=== PATIENT | male | born 1940 | race Two or more races ===

== ENCOUNTER → 2019-02-26 | Outpatient (CLI) | payer OTHER | END | disposition home or self-care (01) | LOC: TOM 07:15 | DX: K56.50 Intestinal adhesions [bands], unspecified as to partial versus complete obstruction (principal); R19.5 Other fecal abnormalities; D64.89 Other specified anemias ==

== ENCOUNTER 2022-04-28 12:20 | Inpatient (IN) | payer OTHER ==
[~2022-04-28] VITALS: Ht 167.6 cm; Wt 99.8 kg
[2022-04-28] MEDS ORDERED: FAMOTIDINE40 MG PO (12:28)
[2022-04-28] MEDS ORDERED: LOKELMA10 GM PO (12:28)
[2022-04-28] MEDS ORDERED: DILTIAZEM ER180 M2 PO (12:28)
[2022-04-28] MEDS ORDERED: GLIMEPIRIDE2 M1 PO (12:28)
[2022-04-28] MEDS ORDERED: MAXIMUM D3325 MCG PO (12:28)
[2022-04-28] MEDS ORDERED: PANTOPRAZOLE SO40 MG PO (12:28)
[2022-04-28] MEDS ORDERED: CALCITRIOL0.25 MCG PO (12:28)
[2022-04-28] MEDS ORDERED: ST. JOSEPH ASPI81 M2 PO (12:29)
[2022-04-28] MEDS ORDERED: LOSARTAN POTASS25 MG PO (12:29)
[2022-04-28] MEDS ORDERED: GABAPENTIN100 M2 PO (12:29)
[2022-04-28] MEDS ORDERED: HYDRALAZINE HCL25 MG PO (12:29)
== END 2022-05-01 14:19 | disposition home or self-care (01) | DRG 682 ==
LOC: ER 12:20 → ICU-2 15:38 → ICU 15:38 → MEDJ 04-30 18:36
PROVIDERS: ADMIT Internal Medicine; ATTEND Internal Medicine
PROC: 30233N1 Transfusion of Nonautologous Red Blood Cells into Peripheral Vein, Percutaneous Approach (ICD-10-PCS; principal; 2022-04-28)
PROC: 4A12X4Z Monitoring of Cardiac Electrical Activity, External Approach (ICD-10-PCS; 2022-04-28)
PROC: B246ZZZ Ultrasonography of Right and Left Heart (ICD-10-PCS; 2022-04-28)
PROC: BW40ZZZ Ultrasonography of Abdomen (ICD-10-PCS; 2022-04-28)
PROC: 3E0F7SF Introduction of Other Gas into Respiratory Tract, Via Natural or Artificial Opening (ICD-10-PCS; 2022-04-28)
DX: I12.0 Hypertensive chronic kidney disease with stage 5 chronic kidney disease or end stage renal disease (principal); N18.6 End stage renal disease; D62 Acute posthemorrhagic anemia; N17.8 Other acute kidney failure; D63.1 Anemia in chronic kidney disease; E11.22 Type 2 diabetes mellitus with diabetic chronic kidney disease; E87.5 Hyperkalemia; I49.8 Other specified cardiac arrhythmias; Z20.822 Contact with and (suspected) exposure to COVID-19; Z79.4 Long term (current) use of insulin; Z53.29 Procedure and treatment not carried out because of patient's decision for other reasons